=== PATIENT | male | born 1930 | race African-American/Black ===

== ENCOUNTER 2018-08-04 08:02 | Inpatient (IN) | payer OTHER ==
[~2018-08-04] VITALS: Ht 190.5 cm; Wt 77.1 kg
[2018-08-04 08:03] VITALS: BP 129/73
[2018-08-04 08:30] LABS: HEMATOCRIT 31.6 % (42.0-52.0); MCH 24.4 pg (26.0-34.0); MCHC 31.7 g/dL (28.0-37.0); MCV 77.1 fL (80.0-100.0); PLATELET COUNT 200 thou/uL (150-400); WBC 7.4 thou/uL (4.0-11.0)
[2018-08-04 08:40] LABS: ANION GAP 14 mmol/L (7-16); BUN 17 mg/dL (7-18); CHLORIDE 105 mmol/L (98-107); CO2 23 mmol/L (21-32); CREATININE 1.3 mg/dL (0.7-1.3); GLUCOSE 149 mg/dL (74-106); POTASSIUM 3.9 mmol/L (3.5-5.1); SODIUM 142 mmol/L (136-145)
[2018-08-04 08:45] LABS: PROTIME 10.6 Seconds (9.3-11.4)
[2018-08-04 08:51] LABS: ALBUMIN 3.6 g/dL (3.4-5.0); SGOT 14 U/L (15-37); SGPT 13 U/L (30-65); TOTAL BILIRUBIN 0.4 mg/dL (<0.1-1.0); TOTAL PROTEIN 7.2 g/dL (6.4-8.2); TROPONIN-I <0.06 ng/mL (<0.06)
[2018-08-04 09:48] LABS: PLATELET ESTIMATE NORMAL
[2018-08-04 10:12] VITALS: BP 129/73
--- NOTE | 2018-08-04 10:20 | NUR ---
REPORT TO LILA ON THE FLOOR AT THIS TIME
[2018-08-04 10:48] VITALS: BP 134/68
[2018-08-04 11:58] VITALS: BP 149/88
[2018-08-04] MEDS ORDERED: MYRBETRIQ50 MG PO (16:07)
[2018-08-04] MEDS ORDERED: XANAX 0.25 MG0.25 MG PO (16:08)
[2018-08-04] MEDS ORDERED: AMARYL2 MG PO (16:14)
[2018-08-04] MEDS ORDERED: TOVIAZ4 MG PO (16:14)
[2018-08-04] MEDS ORDERED: KEPPRA 500 MG500 M1 PO (16:15)
[2018-08-04] MEDS ORDERED: UNICOMPLEX M TA1 TA1 PO (16:15)
[2018-08-04] MEDS ORDERED: NORVASC5 MG PO (16:16)
[2018-08-04] MEDS ORDERED: FINASTERIDE5 MG PO (16:16)
[2018-08-04 16:43] VITALS: BP 150/88
--- NOTE | 2018-08-04 18:28 | NUR ---
PATIENT ADMIT TO UNIT FROM ER AT 1115. A/O X4. SLURRED SPEECH. LEFT SIDE STIFFNESS AND LEFT ARM CONTRACTED. C/O RIGHT ARM PAIN. WILL KEEP MONITOR.
[2018-08-04 19:58] VITALS: BP 126/69
[2018-08-05 03:40] VITALS: BP 133/70
--- NOTE | 2018-08-05 05:11 | NUR ---
Patient baseline speech difficult to understand as he is a little slurred. Patient comments and concerns addressed. Patient given a hydrocodone for right elbow pain. Patient later stated in the shift that he no longer had pain and smiled for the first time since care taken over. Q2H turns completed. Patient mobility reassessed. No acute changes. Progress toward plan of care at this time.
[2018-08-05 06:19] LABS: HEMATOCRIT 31.9 % (42.0-52.0); HEMOGLOBIN 10.1 gm/dL (14.0-18.0); MCH 24.5 pg (26.0-34.0); MCHC 31.6 g/dL (28.0-37.0); MCV 77.5 fL (80.0-100.0); RBC 4.12 mil/uL (4.50-6.00); RDW 16.7 % (10.5-14.5); WBC 6.5 thou/uL (4.0-11.0)
[2018-08-05 06:27] LABS: POTASSIUM 3.8 mmol/L (3.5-5.1)
[2018-08-05 07:16] VITALS: BP 137/64
--- NOTE | 2018-08-05 10:18 | NUR ---
ASSUMED CARES AT 0700. PT SLEEPY, ORIENTED*4. C/O RIGHT ELBOW AND WRIST PAIN, HYDROCODONE ADMINISTERED NEEDED. VITALS REMAINED STABLE. LS CLEAR /DIMINISHED, O2 SATS >92% ON RA. HS STABLE, SINUS RYTHM. BS ACTIVE *4, ABDOMEN SOFT AND ROUND. LEFT ARM REMAINS CONTRACTED, WEAKNESS IN RLE, RUE AND LLE. PT REMAINS A FEEDER, ABLE TO GRASP ITEMS WITH RIGHT HAND BUT UNABLE TO LIFT EXTREMITY TO MOUTH. PT CONTINUES TO HAVE A BUMP ON LEFT EYEBROW, COLOR IS WNL, DENIES PAIN ON SITE. EXTERNAL CATHETER REMAINS INTACT, PT VOIDING MALA YELLOW URINE WITH NO FOUL ODOR. Q2H TURNS. Q1H VISUAL CHECKS. CALL LIGHT WITHIN REACH
[2018-08-05] MEDS ORDERED: ASPIR 8181 MG PO (12:02)
[2018-08-05] MEDS ORDERED: LIPITOR10 MG PO (12:02)
[2018-08-05 12:21] VITALS: BP 137/64
[2018-08-05 12:23] VITALS: BP 129/67
[2018-08-05 16:06] VITALS: BP 137/61
--- NOTE | 2018-08-05 20:10 | NUR ---
RECEIVED BRIEF REPORT AT 1900. VS STABLE. TRANSPORT ARRIVED AT 1944 AND PT WAS TRANSFERRED HOME.
--- NOTE | 2018-08-06 12:43 | HC ---
[facility] [place] [address] CONSULTATION Name: JHONATAN PEMBERTON Room #: 358-P [facility] IN ..#: [id number] Admission: 08/04/18 ������������������ Attend Phys: Ean Palmer MD Discharge: 08/05/18 ������������������ Date of : 34 Report #: [id number] THIS REPORT FOR: //name// CC: Ean Castro DATE OF SERVICE: 08/05/2018 HISTORY OF PRESENT ILLNESS: The patient is an 88-year-old male who yesterday when he woke felt that his right arm was weak and painful. This happened the evening prior to admission. The patient was quite concerned because in 2007, he had a devastating stroke, which significantly impaired the use of his left upper extremity. 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 He misses doing that type of work and can no longer do it, especially the bricklaying because of the weakness in the left arm. He is still able to finish concrete with his right arm. I did come by to see the patient yesterday, but unfortunately he was in MRI. PAST MEDICAL HISTORY: Stroke, anxiety, diabetes, seizure disorder, hypertension, benign prostatic hypertrophy. PAST SURGICAL HISTORY: Negative. MEDICATIONS: At home include Myrbetriq 50 mg daily, alprazolam 0.25 mg b.i.d., Toviaz 4 mg daily, Amaryl 1 mg daily, levetiracetam 500 mg b.i.d., multivitamin daily, Norvasc 5 mg daily, finasteride 5 mg daily. ALLERGIES: None. VITAL SIGNS: Temperature is 37, pulse rate 70, respiratory rate 18, blood pressure 137/64, bedside pulse oximetry 100% on room air. LABORATORY DATA: Hematology: White blood cell count 6.5, hemoglobin 10.1, hematocrit 31.9, MCV 77.7, platelet count 211,000. Chemistry: Sodium 139, potassium 3.8, chloride 105, carbon dioxide 23, BUN 15, creatinine 1, glucose 111. Liver functions normal. IMAGING STUDIES: MRA of the head and neck are unremarkable with the exception of nonvisualization of the left vertebral artery. MRI of the head demonstrates a large right hemispheric MCA stroke. No new stroke is seen. NEUROLOGIC: Cranial nerves 2-12 are grossly intact. 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 The patient also has significant spasticity in the left upper extremity, particularly with elbow flexion. There is a left reflex preponderance. The left plantar response is [address] [address] CONSULTATION Name: JHONATAN PEMBERTON Room #: 358-P [facility] IN ..#: [id number] Admission: 08/04/18 ������������������ Attend Phys: Ean Palmer MD Discharge: 08/05/18 ������������������ Date of : 34 Report #: [id number] extensor, the right is flexor. IMPRESSION: This patient has had an old stroke. I suspect the symptoms in the right upper extremity are secondary to arthritis as he also has pain. I did an x-ray of the elbow yesterday and he has mild arthritic changes. I was quite impressed with the spasticity he has in the left upper extremity and explained to him that Botox can be done for this and if he would like this, I can help him accomplish this. I explained to him, it will not give him more strength, but it will make the arm less stiff. Sometimes that helps people with activities of daily living, for example, putting on a shirt. My office will contact him to see if he would like to make an appointment. I have no further suggestions. I thank you for your kind referral of the patient. ��������������������������������������������� <ELECTRONICALLY SIGNED> ���������������������������������������� By: Lizeth Cook DO ��������������������������������������������� 08/06/18 1243 1105 0025 Lizeth Cook DO /nt
--- NOTE | 2018-08-06 22:29 | EKG ---
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1930 Requested By: Johnny Hartley Order Number: [id number] MD: Johan Monsalve Measurements Intervals [place] Rate: 98 P: 46 SC: 211 QRS: -44 QRSD: 94 T: 55 QT: 368 QTc: 470 Interpretive Statements Sinus tachycardia Ventricular trigeminy Borderline prolonged SC interval Left anterior fascicular block Left ventricular hypertrophy No previous ECG available for comparison Electronically Signed On 08-06-2018 22:28:51 CDT by Johan Monsalve [email or web address] ��������������������������������������������� <ELECTRONICALLY SIGNED> ���������������������������������������� By: Johan Monsalve MD ��������������������������������������������� 08/06/18 2228 0 0 Johan Monsalve MD /KEYSHAWN
== END 2018-08-05 19:45 | disposition home or self-care (01) | DRG 556 ==
LOC: ER 08:02 → EROBS 09:01 → 3W 09:01
PROVIDERS: Emergency Medicine; ADMIT Hospitalist
DX: M79.641 Pain in right hand (principal); E11.9 Type 2 diabetes mellitus without complications; I10 Essential (primary) hypertension; N40.0 Benign prostatic hyperplasia without lower urinary tract symptoms; R25.2 Cramp and spasm; G40.909 Epilepsy, unspecified, not intractable, without status epilepticus; F41.9 Anxiety disorder, unspecified; M19.90 Unspecified osteoarthritis, unspecified site; Z86.73 Personal history of transient ischemic attack (TIA), and cerebral infarction without residual deficits; Z79.899 Other long term (current) drug therapy
CPT/HCPCS: 10879

== ENCOUNTER 2020-03-08 21:36 | Emergency (ER) | payer OTHER ==
[~2020-03-08] VITALS: Ht 190.5 cm; Wt 76.2 kg
[~2020-03-08 21:36] MED LIST: AMARYL2 MG PO; ASPIR 8181 MG PO; FINASTERIDE5 MG PO; KEPPRA 500 MG500 M1 PO; LIPITOR10 MG PO; MYRBETRIQ50 MG PO; NORVASC5 MG PO; TOVIAZ4 MG PO; UNICOMPLEX M TA1 TA1 PO; XANAX 0.25 MG0.25 MG PO
[2020-03-09 00:03] LABS: ANION GAP 13 mmol/L (7-16); BUN 21 mg/dL (7-18); CALCIUM 8.8 mg/dL (8.5-10.1); CHLORIDE 105 mmol/L (98-107); CO2 23 mmol/L (21-32); CREATININE 1.4 mg/dL (0.7-1.3); GLUCOSE 144 mg/dL (74-106); POTASSIUM 3.7 mmol/L (3.5-5.1); SODIUM 141 mmol/L (136-145)
[2020-03-09 00:09] LABS: ALBUMIN 3.6 g/dL (3.4-5.0); DIRECT BILIRUBIN < 0.1 mg/dL (<0.1-0.2); LIPASE 76 U/L (73-393); SGOT 18 U/L (15-37); SGPT 15 U/L (16-63); TOTAL BILIRUBIN 0.4 mg/dL (0.2-1.0); TOTAL PROTEIN 7.3 g/dL (6.4-8.2)
[2020-03-09 01:17] LABS: HEMATOCRIT 21.2 % (42.0-52.0); MCH 17.7 pg (26.0-34.0); MCHC 28.2 g/dL (28.0-37.0); MCV 62.9 fL (80.0-100.0); PLATELET COUNT 246 thou/uL (150-400); RBC 3.38 mil/uL (4.50-6.00); RDW 19.5 % (10.5-14.5); WBC 11.5 thou/uL (4.0-11.0)
[2020-03-09 01:48] LABS: URINE BILIRUBIN NEGATIVE (Negative); URINE BLOOD 2+ (Negative); URINE CLARITY SL CLOUDY; URINE COLOR YELLOW; URINE GLUCOSE-RANDOM* NEGATIVE (Negative); URINE KETONES NEGATIVE (Negative); URINE PROTEIN (DIPSTICK) 2+ (Negative); URINE UROBILINOGEN 0.2 E.U./dl (0.2-1.0)
[2020-03-09 01:51] LABS: URINE LEUKOCYTES-REFLEX 2+ (Negative); URINE NITRITE-REFLEX POSITIVE (Negative)
[2020-03-09 01:55] LABS: BACTERIA-REFLEX >30 Many /HPF (None Seen); CASTS None Seen /LPF (None Seen); CRYSTALS None Seen /LPF (None Seen); MUCUS None Seen strn/LPF (None Seen); SQUAMOUS None Seen /LPF (0-3); URINE RBC 3-10 Few /HPF (0-2); URINE WBC-REFLEX >25 Many /HPF (0-5); WBC CLUMPS Moderate (None Seen)
[2020-03-09 02:32] LABS: ABSOLUTE NEUTROPHILS 10.7 thou/uL (1.4-8.2)
[2020-03-09 02:33] LABS: ANISOCYTOSIS 2+; HYPOCHROMASIA 3+; MICROCYTES 3+; OVALOCYTES 1+; POIKILOCYTOSIS 1+; POLYCHROMASIA 1+; SCHISTOCYTES OCCASIONAL; TARGET CELLS FEW; TEARDROPS 1+
[2020-03-09 02:58] LABS: APTT 37.3 Seconds (24.5-32.8); INR 2.3; PROTIME 23.4 Seconds (9.3-11.4)
[2020-03-09 07:35] VITALS: BP 108/49
--- NOTE | 2020-03-11 07:16 | EKG ---
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1930 Requested By: Amara Wallace Order Number: [id number] MD: Cory Blair Measurements Intervals [place] Rate: 114 P: 259 ND: 165 QRS: -39 QRSD: 104 T: 54 QT: 425 QTc: 586 Interpretive Statements Sinus or ectopic atrial tachycardia Sinus pause Left axis deviation Abnormal R-wave progression, late transition Nonspecific T abnrm, anterolateral leads Prolonged QT interval Artifact in lead(s) II,aVF,V1,V2,V3,V4,V5,V6 and baseline wander in lead(s) V5 Compared to ECG 08/04/2018 08:21:52 NSR Left-axis deviation now present Electronically Signed On 03-11-2020 7:15:55 [employer] by Cory Blair [email or web address] <ELECTRONICALLY SIGNED> By: Cory Blair MD, FACC 03/11/20 0715 40 40 Cory Blair MD, [facility] /EPI
== END 2020-03-09 07:35 | disposition short-term general hospital (02) ==
LOC: ER 21:36
PROVIDERS: Emergency Medicine
DX: S06.5X9A Traumatic subdural hemorrhage with loss of consciousness of unspecified duration, initial encounter (principal); N39.0 Urinary tract infection, site not specified; R11.10 Vomiting, unspecified; R79.1 Abnormal coagulation profile; R94.31 Abnormal electrocardiogram [ECG] [EKG]; E11.9 Type 2 diabetes mellitus without complications; I10 Essential (primary) hypertension; Z86.73 Personal history of transient ischemic attack (TIA), and cerebral infarction without residual deficits; Z79.899 Other long term (current) drug therapy; W01.0XXA Fall on same level from slipping, tripping and stumbling without subsequent striking against object, initial encounter; Y93.01 Activity, walking, marching and hiking; Y92.89 Other specified places as the place of occurrence of the external cause; Y99.8 Other external cause status